=== PATIENT | male | born 1970 | race Caucasian/White ===

== ENCOUNTER → 2017-09-23 | Outpatient (REF) ==
[~2017-09-23] MED LIST: ALL300 PO; CEP500 PO; FENO145T PO; HCTZ25 PO; LOR5 PO
== END ==
LOC: AUD 12:30
PROVIDERS: ATTEND Family Medicine
DX: Z01.10 Encounter for examination of ears and hearing without abnormal findings (principal)
CPT/HCPCS: 92552

== ENCOUNTER → 2018-09-21 | Outpatient (CLI) | payer BC ==
[~2018-09-21] MED LIST changes: -FENO145T PO; +FENO145T36 PO
--- NOTE | 2018-09-21 15:33 | RADIOLOGY IMAGING REPORT ---
FACILITY: [facility] PATIENT NAME: Remberto Ortiz : 1970 MR: [id number] V: [id number] EXAM DATE: ORDERING PHYSICIAN: PAKO BARRIOS TECHNOLOGIST: Location: [facility] Patient: Remberto Ortiz : 1970 Visit/Account:[id number] Date of Sevice: 09/21/2018 CT ABDOMEN PELVIS W/O CON HISTORY: History of kidney stones TECHNIQUE: Axial images acquired through the abdomen/pelvis. Coronal and sagittal reformatting also performed. No IV contrast administered.Dose Lowering Technique One of the following dose optimization techniques was utilized in the performance of this exam: Autom ated exposure control; adjustment of the mA and/or kV according to the patient's size; or use of an i terative reconstruction technique. Specific details can be referenced in the facility's radiology C T exam operational policy. COMPARISON: None. FINDINGS: Visualized lung bases: There is a 4 mm noncalcified nodule in the anterolateral right middle lobe be st seen on image 25 of series 5 Hepatobiliary: Negative. Spleen: Negative. Adrenals: Negative. Pancreas: Negative. Kidneys ureters and bladder: There is a small 2 to 3 mm calcification in the mid right kidney which a ppears to be within the renal pyramid. There is no calcification seen within the renal collecting sy stems or ureters. No evidence of hydronephrosis or hydroureter. The bladder wall is mildly thickene d which may be related to underdistention with urine Genitalia: There coarse calcifications within the prostate gland. The vas deferens are calcified bi laterally GI: Negative. Vessels/spaces/nodes: There are minimal atherosclerotic calcifications in the abdominal aorta Bones/soft tissues: There spondylotic changes of the thoracolumbar spine. There Is a small right i nguinal hernia containing fat Additional findings: None pertinent. IMPRESSION: There is a small 2 to 3 mm calcification in the mid right kidney which appears to be within the renal pyramids. There is no evidence of calculi within the renal collecting systems or ureters. The bladder wall is mildly thickened which may be related to underdistention with urine Small right inguinal hernia containing fat 4 mm noncalcified nodule right middle lobe [employer] FOLLOW-UP GUIDELINES FOR NEWLY DETECTED INCIDENTAL NODULES IN PERSONS 35 YEARS OF AGE OR OLDER. *These recommendations do NOT apply to lung cancer screening, patients with immunosuppression or matthias ents with a known primary malignancy. SOLITARY SOLID NODULE If nodule size is < 6 mm: * Low risk patient ? No routine follow-up. * High risk patient ? Optional CT at 12 months. If nodule size is 6-8 mm: * Low risk patient ? CT at 6-12 months, then consider CT at 18-24 months if no change. * High risk patient ? CT at 6-12 months, then CT at 18-24 months if no change. If nodule size is > 8 mm: * Low risk patient ? Consider CT at 3, 9 and 24 months (if no change), PET/CT, tissue sampling or a combination thereof. * High risk patient ? Consider CT at 3, 9 and 24 months (if no change), PET/CT, tissue sampling, or a combination thereof. LOW RISK PATIENT: Minimal or absent history of tobacco use and of other known risk factors. HIGH RISK PATIENT: Tobacco use, family history of lung cancer, upper pulmonary lobe location of nodul e, presence of emphysema, pulmonary fibrosis, older age. Angelahodayanara H, Thao DP, Goran JM, et al. Guidelines for Management of Incidental Pulmonary Nodules Dete cted on CT Images: From the [employer] 2017. Radiology. [facility] Report Dictated By: Polly Cooper MD at 09/21/2018 3:17 PM Report E-Signed By: Polly Cooper MD at 09/21/2018 3:28 PM WSN:[id number]
== END ==
LOC: CT 02:08
PROVIDERS: ATTEND Urology
DX: N20.0 Calculus of kidney (principal); K40.30 Unilateral inguinal hernia, with obstruction, without gangrene, not specified as recurrent; N40.2 Nodular prostate without lower urinary tract symptoms
CPT/HCPCS: 74176

== ENCOUNTER → 2018-10-13 | Outpatient (REF) | LOC: AUD 13:00 | PROVIDERS: ATTEND Family Medicine | DX: Z01.12 Encounter for hearing conservation and treatment (principal) | CPT/HCPCS: 92552 ==